=== PATIENT | female | born 1995 | race African-American/Black ===

== ENCOUNTER 2018-05-24 11:55 | Emergency (ER) | payer OTHER ==
[2018-05-24 12:00] VITALS: BP 107/70; PULSE 62; TEMP 98.5; BMI 30.5
[2018-05-24] MEDS ORDERED: ONDANSETRON 4 MG TABLET PO ONE ×2 (12:21→12:24)
--- NOTE | 2018-05-24 13:14 | PDOC ---
History of Present Illness - General Chief Complaint: Nausea/Vomiting Stated Complaint: NAUSEA/VOMITING Time Seen by Provider: 05/24/18 12:09 History Source: Patient Exam Limitations: No Limitations - History of Present Illness Initial Comments: 05/24/18 13:10 23 yo F w/ no sig PMHx comes in c/o nausea and multiple episodes of NBNB vomiting this am, 7-8 episodes. NO abdominal pain, no fever/chills, no diarrhea , no urinary symptoms, no vaginal symptoms. NO back pain. LMP Apr 02, she has an irregular cycle. Pt says that she went out last night, had 2 margaritas from a [employer], was fine when she got home but at 6am, started vomiting. no known sick contacts, no recent travel. (+)sexually active, does not use protection at all times. no h/o pregnancies in the past 05/24/18 13:28 Past History - Past Medical History Allergies/Adverse Reactions: Allergies Allergy/AdvReac Type Severity Reaction Status Date / Time No Known Allergies Allergy Verified 05/24/18 12:24 Home Medications: Ambulatory Orders NK [No Known Home Medication] 05/24/18 COPD: No - Immunization History Immunization Up to Date: Yes - Suicide/Smoking/Psychosocial Hx Smoking History: Never smoked Hx Alcohol Use: No Drug/Substance Use Hx: No Review of Systems - Review of Systems Able to Perform ROS?: Yes Constitutional: No: Chills, Fever, Malaise, Night Sweats HEENTM: No: Eye Pain, Recent change in vision, Throat Pain Respiratory: No: Cough, Shortness of Breath Cardiac (ROS): No: Chest Pain, Palpitations, Chest Tightness ABD/GI: Yes: Nausea, Vomiting. No: Diarrhea, Abdominal cramping : No: Dysuria, Hematuria Musculoskeletal: No: Back Pain Integumentary: No: Rash Neurological: No: Headache, Numbness, Dizziness Psychiatric: No: Change in Appetite Endocrine: No: Unexplained Weight Loss *Physical Exam - Vital Signs Last Vital Signs Temp Pulse Resp BP Pulse Ox 98.5 F 62 16 107/70 100 05/24/18 11:57 05/24/18 11:57 05/24/18 11:57 05/24/18 11:57 05/24/18 11:57 - Physical Exam General Appearance: Yes: Nourished. No: Apparent Distress HEENT: positive: RAMIRO, Normal ENT Inspection, Normal Voice. negative: Pale Conjunctivae, Scleral Icterus (R), Scleral Icterus (L) Neck: positive: Supple. negative: Decreased range of motion, Tender midline Respiratory/Chest: positive: Lungs Clear, Normal Breath Sounds. negative: Respiratory Distress, Accessory Muscle Use Cardiovascular: positive: Regular Rhythm, Regular Rate Gastrointestinal/Abdominal: positive: Normal Bowel Sounds, Soft. negative: Tender Musculoskeletal: positive: Normal Inspection. negative: CVA Tenderness, Decreased Range of Motion Extremity: positive: Normal Capillary Refill, Normal Inspection, Normal Range of Motion. negative: Tender, Pedal Edema Integumentary: positive: Normal Color, Dry. negative: Jaundice, Rash Neurologic: positive: Fully Oriented, Alert, Normal Mood/Affect Moderate Sedation - Procedure Monitoring Vital Signs: Procedure Monitoring Vital Signs Temperature 98.5 F 05/24/18 11:57 Pulse Rate 62 05/24/18 11:57 Respiratory Rate 16 05/24/18 11:57 Blood Pressure 107/70 05/24/18 11:57 O2 Sat by Pulse Oximetry (%) 100 05/24/18 11:57 ED Treatment Course - ADDITIONAL ORDERS Additional order review: Laboratory Results 05/24/18 12:13 Urine HCG, Qual Negative - Medications Given in the ED: ED Medications Discontinued Medications Generic Name Dose Route Start Last Admin Trade Name Jaden PRN Reason Stop Dose Admin Ondansetron HCl 4 mg 05/24/18 12:21 05/24/18 12:24 Zofran - PO 05/24/18 12:22 4 mg ONCE ONE Administration Medical Decision Making - Medical Decision Making 05/24/18 13:00 23 yo F w/ NV. NO abdominal pain, no fever, no known sick contacts. WIll give zofran, check a UCG and reassess 05/24/18 13:16 Pt feels better after zofran. UCG negative, will do PO challenge and reassess 05/24/18 19:43 late addendum Pt passed PO challenge, no vomiting in ED, she asked to be discharged UCG negative She will follow up with her PMD [place] diet Return for worsening/concerning symptoms Pt verbalizes understanding and agrees with plan *DC/Admit/Observation/Transfer Diagnosis at time of Disposition: Nausea & vomiting Qualifiers: Vomiting type: unspecified Vomiting Intractability: unspecified Qualified Code( s): R11.2 - Nausea with vomiting, unspecified - Discharge Dispostion Disposition: HOME Condition at time of disposition: Stable Decision to Admit order: No - Referrals - Patient Instructions Printed Discharge Instructions: DI for Nausea -- Adult, DI for Vomiting -- Adult Additional Instructions: Drink lots of fluids. [place] diet as described. NO alcohol. Return for worsening/ concerning symptoms. PMD follow up - Post Discharge Activity
== END 2018-05-24 13:49 | disposition home or self-care (01) ==
LOC: JERFT 11:55
DX: R11.2 Nausea with vomiting, unspecified (principal)
CPT/HCPCS: 84703; 99281-25